=== PATIENT | male | born 1960 | race Caucasian/White ===

== ENCOUNTER 2020-04-08 04:34 | Emergency (ER) | payer MEDICARE, OTHER | END 2020-04-08 08:09 | disposition short-term general hospital (02) | LOC: ER1 04:34 | DX: S22.088A Other fracture of T11-T12 vertebra, initial encounter for closed fracture (principal); R03.0 Elevated blood-pressure reading, without diagnosis of hypertension; M54.6 Pain in thoracic spine; F17.200 Nicotine dependence, unspecified, uncomplicated; Z88.7 Allergy status to serum and vaccine; V48.5XXA Car driver injured in noncollision transport accident in traffic accident, initial encounter; Y92.410 Unspecified street and highway as the place of occurrence of the external cause | CPT/HCPCS: 72125; 72128; 72131; 99284 ==

== ENCOUNTER → 2020-11-22 | Outpatient (CLI) | payer MEDICARE | LOC: EMI 11-14 16:00 | DX: M25.471 Effusion, right ankle (principal) | CPT/HCPCS: 73721 ==